=== PATIENT | male | born 1985 | race Caucasian/White ===

== ENCOUNTER 2017-10-18 13:40 | Emergency (ER) | payer SELFPAY ==
[~2017-10-18] VITALS: Ht 193 cm; Wt 68.2 kg
[2017-10-18 13:45] VITALS: BP 139/76; PULSE 71; TEMP 97.7
[2017-10-18 14:16] LABS: COLLECTION METHOD CLEAN CATCH
[2017-10-18 14:29] LABS: MUCOUS Present /lpf; PH 5 (5-8); URINE APPEARANCE Clear; URINE BACTERIA None Seen /hpf; URINE BILIRUBIN Negative (NEGATIVE); URINE BLOOD 3+ (NEGATIVE); URINE COLOR Yellow; URINE GLUCOSE Negative (NEGATIVE); URINE KETONE Negative (NEGATIVE); URINE LEUKOCYTE ESTERASE Trace (NEGATIVE); URINE NITRATE Negative (NEGATIVE); URINE PROTEIN(semi-quant) Negative (NEGATIVE); URINE RBC >50 /hpf; URINE UROBILINOGEN Negative (NEGATIVE)
[2017-10-18] MEDS ORDERED: CEFTIN500 MG PO (14:40)
== END 2017-10-18 15:10 | disposition home or self-care (01) ==
LOC: COL.ER 13:40
PROVIDERS: Emergency Medicine
DX: N39.0 Urinary tract infection, site not specified (principal); N20.1 Calculus of ureter